=== PATIENT | female | born 1980 | race Caucasian/White ===

== ENCOUNTER → 2016-12-26 | Outpatient (CLI) | payer OTHER ==
[2016-12-26 15:36] LABS: COMPLETE YES; EOS % 0.6 %; HEMATOCRIT 39.6 % (37-47); IG% 0.1 %; LYMPH % 19.6 %; LYMPH ABS # 1.42 K/uL (1.2-3.4); MEAN CELL VOLUME 87.4 fL (80-100); MEAN CORPUSCULAR HEMOGLOBIN 30.5 pg (25-34); MEAN CORPUSCULAR HGB CONC 34.8 g/dl (32-36); MEAN PLATELET VOLUME 10.8 fL (7.4-10.4); NEUT % 70.7 %; PLATELET COUNT 163 K/uL (130-400); RED BLOOD COUNT 4.53 M/uL (4.2-5.4); WHITE BLOOD COUNT 7.25 K/uL (4.8-10.8)
[2016-12-26 16:09] LABS: ALT/SGPT 32 U/L (12-78); AST/SGOT 31 U/L (15-37); BLOOD UREA NITROGEN 18 mg/dl (7-18); BUN/CREATININE RATIO 27.1 (10-20); C-REACTIVE PROTEIN 0.36 mg/dl (0-0.29); CALCIUM 8.7 mg/dl (8.5-10.1); CARBON DIOXIDE 24 mmol/L (21-32); CHLORIDE 104 mmol/L (98-107); CREATININE 0.66 mg/dl (0.60-1.20); GLUCOSE 96 mg/dl (70-99); POTASSIUM 4.4 mmol/L (3.5-5.1); SODIUM 136 mmol/L (136-145)
[2016-12-26 16:11] LABS: ALB/GLOB RATIO 1.1 (0.9-2); ALKALINE PHOSPHATASE 126 U/L (45-117)
[2016-12-30 15:28] LABS: IGA SERUM 129 mg/dL (81-463); TIS TRANS IGA 1 U/mL (<4)
== END | disposition home or self-care (01) ==
LOC: C.LAB1850 14:55
PROVIDERS: ATTEND Registered Nurse
DX: K52.9 Noninfective gastroenteritis and colitis, unspecified (principal)

== ENCOUNTER → 2017-04-06 | Outpatient (CLI) | payer OTHER | END | disposition home or self-care (01) | LOC: C.LAB 17:38 | PROVIDERS: ATTEND Obstetrics & Gynecology | DX: O20.0 Threatened abortion (principal) ==

== ENCOUNTER → 2017-04-23 | Outpatient (CLI) | payer OTHER ==
[2017-04-23 18:25] LABS: URINE APPEARANCE CLEAR (CLEAR); URINE BILIRUBIN NEG (NEG); URINE COLOR YELLOW; URINE EPITHELIAL CELL AUTO >30 /lpf (0-5); URINE NITRITE NEG (NEG); URINE SPECIFIC GRAVITY 1.029 (1.000-1.030); UROBILINOGEN NEG (NEG)
[2017-04-23 18:26] LABS: MANUAL MICROSCOPIC REQUIRED? NO; REVIEW REQ? YES
== END | disposition home or self-care (01) ==
LOC: C.LABSPEC 17:12
PROVIDERS: ATTEND Obstetrics & Gynecology
DX: O09.511 Supervision of elderly primigravida, first trimester (principal); Z3A.00 Weeks of gestation of pregnancy not specified

== ENCOUNTER → 2017-04-29 | Outpatient (CLI) | payer OTHER ==
[2017-05-02 02:00] LABS: CHLAMYDIA TRACH RNA*** NOT DETECTED (NOT DETECTED); GC (NEIS GONORRHOEAE)RNA** NOT DETECTED (NOT DETECTED)
== END | disposition home or self-care (01) ==
LOC: C.LABSPEC 13:28
PROVIDERS: ATTEND Obstetrics & Gynecology
DX: O09.511 Supervision of elderly primigravida, first trimester (principal); Z3A.00 Weeks of gestation of pregnancy not specified

== ENCOUNTER → 2017-05-14 | Outpatient (CLI) | payer OTHER ==
[2017-05-14 13:47] LABS: URINE APPEARANCE CLEAR (CLEAR); URINE BILIRUBIN NEG (NEG); URINE COLOR YELLOW; URINE EPITHELIAL CELL AUTO >30 /lpf (0-5); URINE NITRITE NEG (NEG); URINE PH 6.5 (4.5-7.5); URINE SPECIFIC GRAVITY 1.021 (1.000-1.030); UROBILINOGEN NEG (NEG)
[2017-05-14 13:50] LABS: MANUAL MICROSCOPIC REQUIRED? NO; REVIEW REQ? NO
== END | disposition home or self-care (01) ==
LOC: C.LAB1850 10:42
PROVIDERS: ATTEND Obstetrics & Gynecology
DX: O23.40 Unspecified infection of urinary tract in pregnancy, unspecified trimester (principal)

== ENCOUNTER → 2017-06-24 | Outpatient (CLI) | payer BC ==
[2017-06-24 12:56] LABS: THYROID STIMULATING HORMONE 0.242 uIu/ml (0.300-4.500)
[2017-06-24 15:22] LABS: URINE APPEARANCE CLEAR (CLEAR); URINE BILIRUBIN NEG (NEG); URINE COLOR YELLOW; URINE NITRITE NEG (NEG); URINE SPECIFIC GRAVITY 1.027 (1.000-1.030); UROBILINOGEN NEG (NEG)
[2017-06-24 15:25] LABS: MANUAL MICROSCOPIC REQUIRED? NO; REVIEW REQ? NO
== END | disposition home or self-care (01) ==
LOC: C.LAB1850 11:21
PROVIDERS: ATTEND Internal Medicine Endocrinology, Diabetes & Metabolism
DX: R30.0 Dysuria (principal); E03.9 Hypothyroidism, unspecified; O20.0 Threatened abortion

== ENCOUNTER → 2017-06-26 | Outpatient (CLI) | payer BC ==
[2017-06-26 15:42] LABS: GTGD 50 Grams
[2017-07-16 10:25] LABS: AFP CONCENTRATION 54.6 NG/ML; AFPTS GESTATIONAL AGE 16.1 WEEKS; AFPTS INSULIN DEP DIABETIC? NO; AFPTS MATERNAL WT 157 LBS; ALPHA-FETOPROTEIN RACE CAUCASIAN=W; HISTORY OF NTD NO; REPEAT SAMPLE? NO
== END | disposition home or self-care (01) ==
LOC: C.LAB1850 13:31
PROVIDERS: ATTEND Obstetrics & Gynecology
DX: O09.512 Supervision of elderly primigravida, second trimester (principal)

== ENCOUNTER → 2017-07-03 | Outpatient (CLI) | payer BC | END | disposition home or self-care (01) | LOC: C.LAB1850 08:41 | PROVIDERS: ATTEND Obstetrics & Gynecology | DX: O28.1 Abnormal biochemical finding on antenatal screening of mother (principal); Z3A.00 Weeks of gestation of pregnancy not specified ==

== ENCOUNTER → 2017-07-17 | Outpatient (CLI) | payer BC ==
[2017-07-17 17:40] LABS: MANUAL MICROSCOPIC REQUIRED? NO; REVIEW REQ? NO; URINE APPEARANCE CLEAR (CLEAR); URINE BILIRUBIN NEG (NEG); URINE COLOR YELLOW; URINE NITRITE NEG (NEG); URINE PH 5.5 (4.5-7.5); URINE SPECIFIC GRAVITY 1.027 (1.000-1.030); UROBILINOGEN NEG (NEG)
== END | disposition home or self-care (01) ==
LOC: C.LAB1850 15:41
PROVIDERS: ATTEND Obstetrics & Gynecology
DX: R30.9 Painful micturition, unspecified (principal)

== ENCOUNTER → 2017-07-24 | Outpatient (CLI) | payer BC ==
[2017-07-24 13:53] LABS: THYROID STIMULATING HORMONE 0.314 uIu/ml (0.300-4.500)
== END | disposition home or self-care (01) ==
LOC: C.LAB1850 12:08
PROVIDERS: ATTEND Internal Medicine Endocrinology, Diabetes & Metabolism
DX: E03.9 Hypothyroidism, unspecified (principal); E06.3 Autoimmune thyroiditis; Z33.1 Pregnant state, incidental; Z3A.00 Weeks of gestation of pregnancy not specified

== ENCOUNTER → 2017-08-21 | Outpatient (CLI) | payer BC ==
[2017-08-21 15:12] LABS: THYROID STIMULATING HORMONE 0.231 uIu/ml (0.300-4.500)
== END | disposition home or self-care (01) ==
LOC: C.LAB1850 12:34
PROVIDERS: ATTEND Internal Medicine Endocrinology, Diabetes & Metabolism
DX: E03.9 Hypothyroidism, unspecified (principal)

== ENCOUNTER → 2017-09-18 | Outpatient (CLI) | payer BC ==
[2017-09-18 14:36] LABS: HEMATOCRIT 35.1 % (37-47)
[2017-09-18 17:41] LABS: THYROID STIMULATING HORMONE 0.279 uIu/ml (0.300-4.500)
[2017-09-18 18:49] LABS: URINE APPEARANCE CLEAR (CLEAR); URINE BILIRUBIN NEG (NEG); URINE COLOR YELLOW; URINE EPITHELIAL CELL AUTO >30 /lpf (0-5); URINE NITRITE NEG (NEG); URINE SPECIFIC GRAVITY 1.021 (1.000-1.030); UROBILINOGEN NEG (NEG)
[2017-09-18 18:51] LABS: MANUAL MICROSCOPIC REQUIRED? NO; REVIEW REQ? NO
== END | disposition home or self-care (01) ==
LOC: C.LAB1850 13:31
PROVIDERS: ATTEND Obstetrics & Gynecology
DX: O09.512 Supervision of elderly primigravida, second trimester (principal); O99.282 Endocrine, nutritional and metabolic diseases complicating pregnancy, second trimester; E03.9 Hypothyroidism, unspecified; Z3A.00 Weeks of gestation of pregnancy not specified

== ENCOUNTER → 2017-09-28 | Outpatient (CLI) | payer BC | END | disposition home or self-care (01) | LOC: C.LAB1850 08:35 | PROVIDERS: ATTEND Obstetrics & Gynecology | DX: O28.1 Abnormal biochemical finding on antenatal screening of mother (principal); Z3A.00 Weeks of gestation of pregnancy not specified; E53.8 Deficiency of other specified B group vitamins ==

== ENCOUNTER → 2017-10-02 | Outpatient (CLI) | payer BC ==
[2017-10-02 19:19] LABS: URINE APPEARANCE CLEAR (CLEAR); URINE BILIRUBIN NEG (NEG); URINE COLOR YELLOW; URINE EPITHELIAL CELL AUTO >30 /lpf (0-5); URINE NITRITE NEG (NEG); URINE SPECIFIC GRAVITY 1.015 (1.000-1.030); UROBILINOGEN NEG (NEG)
[2017-10-02 19:27] LABS: MANUAL MICROSCOPIC REQUIRED? NO; REVIEW REQ? NO
== END | disposition home or self-care (01) ==
LOC: C.LABSPEC 17:50
PROVIDERS: ATTEND Obstetrics & Gynecology
DX: O23.40 Unspecified infection of urinary tract in pregnancy, unspecified trimester (principal)

== ENCOUNTER → 2017-10-16 | Outpatient (CLI) | payer BC | END | disposition home or self-care (01) | LOC: C.LABSPEC 15:34 | PROVIDERS: ATTEND Obstetrics & Gynecology | DX: O23.40 Unspecified infection of urinary tract in pregnancy, unspecified trimester (principal) ==

== ENCOUNTER → 2017-10-27 | Outpatient (CLI) | payer BC ==
[~2017-10-27] MED LIST: CYAN10005 SL; CYAN50TA2; LEVO100T7 PO; PRENTAB26 PO
== END | disposition home or self-care (01) ==
LOC: C.LAB1850 09:07
PROVIDERS: ATTEND Internal Medicine Endocrinology, Diabetes & Metabolism
DX: E03.9 Hypothyroidism, unspecified (principal)

== ENCOUNTER → 2017-11-12 | Outpatient (CLI) | payer OTHER | END | disposition home or self-care (01) | LOC: C.LABSPEC 17:42 | PROVIDERS: ATTEND Obstetrics & Gynecology | DX: O09.513 Supervision of elderly primigravida, third trimester (principal) ==

== ENCOUNTER 2017-11-29 03:46 | Inpatient (IN) | payer OTHER ==
[~2017-11-29] VITALS: Ht 172.7 cm; Wt 85.7 kg
[2017-11-29] MEDS ORDERED: LEVO100T7 PO (04:36)
[2017-11-29] MEDS ORDERED: PRENTAB26 PO (04:36)
[2017-11-29] MEDS ORDERED: CYAN50TA2 (04:36)
[2017-11-29 04:37] VITALS: Ht 172.7 cm; Wt 85.7 kg
[2017-11-29] MEDS ORDERED: LACTATED RINGER'S 1000ML 1,000 ML IV PRN (05:07)
[2017-11-29 05:39] LABS: HEMATOCRIT 35.6 % (37-47); HEMOGLOBIN 12.4 g/dL (12.0-16.0); MEAN CORPUSCULAR HGB CONC 34.8 g/dl (32-36); MEAN PLATELET VOLUME 11.1 fL (7.4-10.4); PLATELET COUNT 150 K/uL (130-400); RED CELL DISTRIBUTION WIDTH CV 14.3 % (11.5-14.5); RED CELL DISTRIBUTION WIDTH SD 47.6 fL (36.4-46.3); WHITE BLOOD COUNT 8.26 K/uL (4.8-10.8)
[2017-11-29] MEDS: LACTATED RINGER'S 1000ML 1,000 ML IV SCH ×3 (09:20→17:15)
[2017-11-29] MEDS: LEVOTHYROXINE 100 MCG TAB PO SCH (10:36)
[2017-11-29] MEDS ORDERED: FENTANYL CITRATE INJ 50 MCG/1 ML 2 ML VIAL ONE (11:16)
[2017-11-29] MEDS ORDERED: BUPIVACAINE 0.25% 30 ML VIAL ONE (11:16)
[2017-11-29] MEDS ORDERED: EpHEDrine SULFATE INJ 50 MG/ML AMP ONE (11:16)
[2017-11-29] MEDS ORDERED: FENTANYL 2MCG/ML ROPIV 1.25MG/ML 100ML BAG EPI ONE (11:17)
[2017-11-29] MEDS ORDERED: LACTATED RINGER'S 1000ML 500 ML IV PRN ×2 (11:32→12:14)
[2017-11-29] MEDS ORDERED: OXYTOCIN 30 UNITS/500ML NSS IV PRN ×2 (11:45→21:45)
[2017-11-29] MEDS ORDERED: NALOXONE HCL INJ 1 MG in SODIUM CHLORIDE 0.9% 1000ML 1,000 ML IV PRN (12:14)
[2017-11-29] MEDS ORDERED: NALBUPHINE HCL INJ 10 MG/ML AMP IV PRN (12:15)
[2017-11-29] MEDS ORDERED: NALOXONE HCL INJ 0.4 MG/1 ML VIAL/CARP IV PRN (12:15)
[2017-11-29] MEDS ORDERED: EpHEDrine SULFATE INJ 50 MG/ML AMP IV PRN (12:15)
[2017-11-29] MEDS ORDERED: ONDANSETRON INJ 2 MG/ML 2 ML VIAL IV PRN (12:15)
[2017-11-29] MEDS ORDERED: DiphenhydrAMINE HCL 50 MG/ML VIAL IV PRN (12:15)
[2017-11-29] MEDS: FENTANYL 2MCG/ML ROPIV 1.25MG/ML 100ML BAG EPI PRN ×2 (18:11→19:09)
[2017-11-29] MEDS ORDERED: ACETAMINOPHEN 325 MG TAB PO PRN (21:45)
[2017-11-29] MEDS ORDERED: SUPERCREAM 0.870 % 15GM JAR EXT PRN (21:45)
[2017-11-29] MEDS ORDERED: LANOLIN OINT EXT PRN (21:45)
[2017-11-29] MEDS ORDERED: OXYCODONE/ACETAMINOPHEN 5-325 TAB PO PRN (21:45)
[2017-11-29] MEDS ORDERED: BENZOCAINE 20% AER SPR 82.5 GM CAN EXT PRN (21:45)
[2017-11-29] MEDS ORDERED: HYDROCORTISONE ACETATE 25 MG SUPP PR PRN (21:45)
[2017-11-29] MEDS ORDERED: DIPHTHERIA/TETANUS/PERTUSSIS 0.5 ML SYR/VIAL IM. ONE (21:45)
--- NOTE | 2017-11-29 21:45 | Anesthesia Procedure Note ---
Anesthesia Epidural Removal Nt Date & Time Nov 29, 2017 at 21:45 Vital Signs Pain Intensity: 0.0 Notes Mental Status: alert / awake / arousable, participated in evaluation Nausea / Vomiting: adequately controlled Pain: adequately controlled Airway Patency, RR, SpO2: stable & adequate BP & HR: stable & adequate Hydration State: stable & adequate Neuraxial Anesthesia: was administered Anesthetic Complications: no major complications apparent, pt satisfied with anesthetic care Epidural: removed without complications, with tip intact
--- NOTE | 2017-11-29 22:38 | DELIVERY SUMMARY ---
DATE OF OPERATION: 11/29/2017 PREOPERATIVE DIAGNOSES: 1. Intrauterine at 40+ weeks. 2. Spontaneous rupture of membranes prior to the onset of labor. POSTOPERATIVE DIAGNOSES: Same. PROCEDURES: 1. Epidural anesthesia. 2. Pitocin augmentation. 3. Normal spontaneous vaginal delivery. 4. Second degree perineal laceration with repair. SURGEON: Dr. Harry. ANESTHESIA: Epidural. ESTIMATED BLOOD LOSS: 400 mL. DESCRIPTION OF PROCEDURE: The patient presented to labor and delivery with grossly rupture of membranes. She was 150% minus 2 station on admission. She was monitored and progressed to 380 and minus 2 but then stalled at that point in time. She eventually got an epidural anesthesia and then Pitocin augmentation. GBS was negative. She progressed to complete complete and +1 station. She labored down for an hour and then pushed for a little less than 2 hours to deliver a viable female infant in FLAVIO presentation with the nuchal hand and arm. There was a body cord through which the baby was delivered. The nose and mouth were bulb suctioned on the perineum and the rest of the was then delivered without difficulty. The infant was placed on the maternal abdomen for drying and attention. The cord blood was obtained. The placenta was delivered spontaneously intact with a 3-vessel cord. Cervix, sulci and rectum examined and found to be intact. Second degree perineal laceration was repaired with 3-0 Vicryl in the normal standard fashion. Estimated blood loss 400 mL. Hemostasis with dilute Pitocin and fundal massage. Apgars were 8 and 9. Weight pending. Mother and baby doing well at the end of the delivery. I attest to the content of the Intraoperative Record and any orders documented therein. Any exception s are noted below.
[2017-11-30] VITALS (7 sets, daily range): BP systolic 108–133; BP diastolic 69–85; PULSE 68–84; TEMP 36.5–36.8; O2SAT 95–100
--- NOTE | 2017-11-30 05:32 | Progress Note ---
Subjective Nov 30, 2017. Subjective conversation w/ patient, physical exam, lab review Ambulation: ambulating normally Voiding: no voiding problems Passing Gas: Yes Diet Tolerance: Regular Diet Lochia: Small Feeding Type: Breast Feeding Pain: BOTTOM AND HEMORRHOIDS SORE Objective Vital Signs Date Time Temp Pulse Resp B/P (MAP) Pulse Ox O2 Delivery O2 Flow Rate FiO2 11/30/17 03:45 36.8 69 18 108/69 (82) Room Air 11/30/17 00:01 36.5 68 18 119/72 (88) Room Air Physical Exam General Appearance: WELL-APPEARING, WD/WN, NO APPARENT DISTRESS Respiratory/Chest: lungs clear Cardiovascular: regular rate, rhythm Abdomen: non tender, soft Fundus: Firm, Non-Tender, Relation to Umbilicus (AT U) Extremities: non-tender, normal inspection Laboratory Results Last 24 Hours Test 11/29/17 06:02 11/29/17 08:29 11/29/17 10:33 11/29/17 12:43 Bedside Glucose 70 mg/dl 97 mg/dl 99 mg/dl 100 mg/dl Test 11/29/17 14:39 11/29/17 16:45 11/29/17 19:08 11/29/17 21:07 Bedside Glucose 84 mg/dl 95 mg/dl 91 mg/dl 117 mg/dl Test 11/30/17 04:44 Assessment and Plan Post- Day#: 1 Continue Routine Care: Doing well. Routine care. Continue B12 and synthroid. Supercream for hemorrhoids.
[2017-11-30] MEDS: LEVOTHYROXINE 100 MCG TAB PO SCH (07:35)
[2017-11-30 07:54] LABS: HEMATOCRIT 32.6 % (37-47); HEMOGLOBIN 11.1 g/dL (12.0-16.0)
[2017-11-30] MEDS: PRENATAL VITAMIN TAB PO SCH (08:09)
[2017-11-30] MEDS: DOCUSATE SODIUM 100 MG CAP PO SCH ×2 (08:09→20:04)
--- NOTE | 2017-11-30 11:00 | Discharge Instructions ---
Discharge Instructions Date of Service Nov 30, 2017. Admission Reason for Admission: LABOR Discharge Discharge Diagnosis / Problem: Vaginal Delivery Discharge Goals Goal(s): Routine recovery after delivery Medications Continue Dispensed Medications: supercream, dermaplast, tucks, lansinoh Activity Recommendations Activity Limitations: per Instructions/Follow-up section . Instructions / Follow-Up Instructions / Follow-Up ACTIVITY RECOMMENDATIONS: * Gradual return to full activity over the next 2-3 weeks. * No lifting - nothing heavier than baby over the next 2-3 weeks. * Do not engage in vigorous exercise, sexual activity or sports until cleared by your physician. * Do not drive or operate any motorized equipment until cleared by your physician. * You may shower/bathe daily. MEDICATIONS: For discomfort or pain, you may use Acetaminophen (Tylenol), Ibuprofen (Advil), or Naproxen (Aleve) following the package directions. For constipation you may use Colace following the package directions. BREAST CARE: If you are not breast feeding: * Wear a supportive bra 24 hours a day for one to two weeks. * Avoid stimulating your breasts and nipples as much as possible during the first few weeks after delivery. * When taking a shower, have the warm water hit your back, not breasts. * When your breasts feel full, apply ice packs. Usually three to four times a day helps ease the discomfort. * Take a mild pain medication (Tylenol / Motrin) when you are uncomfortable. If breast feeding: * Use breast milk to lubricate nipples. Lansinoh cream may be used for sore nipples. You do not need to remove cream prior to breast feeding. If using a different brand of cream, check the label for directions regarding removal of cream prior to nursing. * Wear a supportive bra. * If having problems with breasts or breast feeding, call a sales development consultant or your health care provider. EPISIOTOMY CARE: After delivery, if you have an episiotomy (stitches), the following steps will ease discomfort and aid healing. * For the first 24 hours after delivery, place ice packs next to your episiotomy to help reduce swelling. * After the first 24 hour-period, sitz baths, either portable or in the tub, are suggested. A shower with a shower arm sprayed over the episiotomy may be comforting. * Roxann care should be done after each voiding and bowel movement. Squirt warm water from a plastic bottle over the perineum (region of the body between the anus and urinary opening) and pat dry. * Use Dermoplast to ease discomfort. Shake container. [place] directly over the episiotomy. Place a Tucks on a clean sanitary pad next to your episiotomy. SPECIAL CARE INSTRUCTIONS: When you are discharged from the hospital, it is important for you to follow the instructions listed below: * During the first week at home, you should be able to care for yourself and your baby. In addition, the usual light household activities are encouraged. * Limit your activities to the way you feel. Do not try to clean the house or move furniture. Be sensible. * If you actively engage in sports and have done so up until the time of your delivery, you may resume these activities as soon as you feel able. This may take up to one month or even longer. Use good judgment. * Continue to take your vitamins for at least six weeks after the of your baby. * Your diet need not be limited unless you were on a special diet before your delivery. Breast-feeding mothers need around 2500 calories per day and at least 64-80 ounces of fluid per day (8 to 10 glasses). * You should eat foods from the four major food groups. Crash diets or fad diets are to be avoided. Eating lean meats, fresh fruits and vegetables, low-fat dairy products, high fiber foods and a regular exercise program, will help you get back to your pre- weight without putting your health at risk. * Constipation is sometimes a problem after delivery. Take a mild laxative as needed. If breast feeding, Milk of Magnesia is acceptable to use. You may use a suppository or Fleets enema if no episiotomy. * A daily shower or tub bath is suggested. Be sure to thoroughly and gently dry the perineum. * A bloody vaginal discharge will usually continue until around four weeks post . A small amount of bleeding may continue for as long as six weeks. Vaginal discharge changes from the bright red bleeding after delivery to pink then brownish and finally yellowish-pink before becoming white and disappearing. * Bleeding may increase with activity. Your first period may come in 4-8 weeks. If you are breast feeding, your period may be delayed even longer. * [place] (sex) can begin whenever both you and your partner feel comfortable and do not have any form of genital infection. It is recommended that you wait at least six weeks for internal and external healing to occur. If you have questions, please talk to your health care practitioner. A condom should be used to prevent infection and . * Foreplay, gentle intercourse and lubrication is very important the first several times to prevent pain. A water-based lubricant such as K-Y jelly or Astroglide may be used. * If you have RH negative blood and your baby is RH positive, you will receive RHOGAM by injection prior to discharge. The nurse will give you a card to keep with you that has the date and place that you received RHOGAM after delivery. * During your care, you had a Rubella screen done to check for the presence of rubella antibodies in your blood. If your test was negative, you will receive a Rubella vaccine prior to discharge. This vaccine may cause a fever, soreness at the injection site and flu-like symptoms. If these symptoms persist, notify your health care practitioner. is not advised for one month after a Rubella vaccine. * Verbalizes understanding of car seat law as reviewed with patient nursing. * Car Seat hand-out given and reviewed with patient by nursing. * Shaken baby information reviewed with patient by nursing. Call you doctor if: * Heavy bleeding (saturating several pads an hour) or passing clots the size of your fist. * A fever >101 degrees F (38.3 degrees C) on two occasions four hours apart and /or chills. * Unusual pain in the pelvic or vaginal areas. * "Baby Blues" lasting longer than two weeks. If you have any questions or concerns, call your health care practitioner at . FOLLOW UP VISIT: * Please call the office at to schedule a 6 week examination. It is important you keep this appointment. It is important for you to make arrangements for either yearly or twice yearly check-ups thereafter. Current Hospital Diet Patient's current hospital diet: Regular OB Diet Discharge Diet Recommended Diet: Regular Diet Pending Studies Studies pending at discharge: no Medical Emergencies . Who to Call and When: Medical Emergencies: If at any time you feel your situation is an emergency, please call [phone] immediately. . Non-Emergent Contact Non-Emergency issues call your: Primary Care Provider . . "Provider Documentation" section prepared by Cristina Madison. . VTE Core Measure Inpt VTE Proph given/why not?: Treatment not indicated
[2017-11-30] MEDS: IBUPROFEN 600 MG TAB PO PRN ×2 (13:06→18:51)
[2017-11-30] MEDS ORDERED: CYAN10005 SL (14:11)
--- NOTE | 2017-11-30 18:55 | Progress Note ---
Progress Note Date of Service Nov 30, 2017. Progress Note ctsp due to right hip pain. she has h/o sciatica before . had and 2nd degree repair about 24hr ago. she feels that her hip pain is worse than with the . she is doing stretches and applying heat but not feeling better. she is abiola po, voiding. she has not had bm but feels anal spasms i observe her in bed and she is having pain, moves slowly to lay supine. vag exam done and no evidence of side wall hematoma that could be aggravating situation. assisted patient in trying some maneuvers to reset pubic bone and these are techniques she has been told before due to her chronic condition. they seemingly have not helped. rec motrin and bedside walker. PT consult. pt verbalized understanding.
[2017-11-30] MEDS: SUB SL SCH (20:03)
[2017-11-30] MEDS: METHYLCOBALAMIN 1000 MCG SL SCH (20:03)
[2017-12-01] MEDS: IBUPROFEN 600 MG TAB PO PRN ×2 (00:17→09:41)
[2017-12-01] MEDS: LEVOTHYROXINE 100 MCG TAB PO SCH (07:22)
--- NOTE | 2017-12-01 07:24 | Progress Note ---
Subjective Dec 01, 2017. Subjective conversation w/ patient, physical exam Ambulation: ambulation with walker Voiding: no voiding problems Diet Tolerance: Regular Diet Lochia: Small Feeding Type: Breast Feeding Pain: improving pain in back and pubic bone and vagina Comment: taking motrin regularly. sitting upright better. slow ambulation to BR. complaining of tightness behind knee on right, R>L Objective Vital Signs Date Time Temp Pulse Resp B/P (MAP) Pulse Ox O2 Delivery O2 Flow Rate FiO2 11/30/17 23:30 36.8 77 18 109/70 (83) Room Air 11/30/17 23:30 Room Air 11/30/17 18:50 36.6 84 20 120/84 (96) 96 Room Air 11/30/17 16:15 95 Room Air 11/30/17 16:15 36.5 84 22 110/70 (83) 95 Room Air 11/30/17 11:30 36.7 84 22 123/76 (92) 97 Room Air 11/30/17 07:40 100 Room Air 11/30/17 07:40 36.5 70 18 133/85 (101) 100 Room Air Physical Exam General Appearance: WELL-APPEARING, WD/WN, NO APPARENT DISTRESS, other (rash on chest, reticular, small area about 3cm, no pruritic, ) Respiratory/Chest: lungs clear Cardiovascular: regular rate, rhythm Abdomen: non tender, soft Fundus: Firm, Relation to Umbilicus (2 down) Extremities: normal inspection (complaints of tenderness behind right knee. R= L in appearance), + swelling Laboratory Results Last 24 Hours Test 11/30/17 07:41 Hemoglobin 11.1 g/dL Hematocrit 32.6 % Assessment and Plan Post- Day#: 2 Continue Routine Care: improved hip and pubic bone pain, plan PT consult and see if needs at home, pt with long standing pelvic bone pain and will need to improve with time. she has exercises she is well aware of to improve with time and feels like she wants to go home and allow more time to heal. given right leg pain, will check US to evaluate for DVT once this is done and PT consult done, will plan d/c home. instructions reviewed. f/u 6 wk pp check. . reviewed rash on chest, can apply otc hydrocortisone and monitor.
[2017-12-01] MEDS: SUB SL SCH (08:26)
[2017-12-01] MEDS: METHYLCOBALAMIN 1000 MCG SL SCH (08:26)
[2017-12-01] MEDS: DOCUSATE SODIUM 100 MG CAP PO SCH (08:26)
[2017-12-01] MEDS: PRENATAL VITAMIN TAB PO SCH (08:26)
[2017-12-01 08:41] VITALS: BP 107/67; PULSE 64; TEMP 36.9; O2SAT 98
--- NOTE | 2017-12-01 09:30 | DIAGNOSTIC IMAGING REPORT ---
RIGHT LOWER EXTREMITY VENOUS DOPPLER CLINICAL HISTORY: Right leg pain and swelling. COMPARISON STUDY: No previous studies for comparison. TECHNIQUE: Sonography of the deep venous system of the right lower extremity was performed. Compression and augmentation were evaluated. FINDINGS: The right common femoral, superficial femoral and popliteal veins were compressible. Augmentation was normal. Flow was shown within the deep calf vessels. IMPRESSION: No evidence of deep venous thrombus within the right lower extremity. Electronically signed by: Ventura Pinto M.D. 12/01/2017 9:28 AM Dictated Date/Time: 12/01/2017 9:28 AM
[2017-12-01 10:05] VITALS: O2SAT 98
== END 2017-12-01 12:40 | disposition home or self-care (01) | DRG 775 ==
LOC: C.OPB 03:46 → C.LD 03:46 → C.OPB 04:53 → C.OBG 11-30 00:05
PROVIDERS: ADMIT Obstetrics & Gynecology; ATTEND Obstetrics & Gynecology
PROC: 0KQM0ZZ Repair Perineum Muscle, Open Approach (ICD-10-PCS; principal; 2017-11-29)
PROC: 10E0XZZ Delivery of Products of Conception, External Approach (ICD-10-PCS; principal; 2017-11-29)
DX: O24.424 Gestational diabetes mellitus in childbirth, insulin controlled (principal); O42.92 Full-term premature rupture of membranes, unspecified as to length of time between rupture and onset of labor; O76 Abnormality in fetal heart rate and rhythm complicating labor and delivery; O69.81X0 Labor and delivery complicated by cord around neck, without compression, not applicable or unspecified; O70.1 Second degree perineal laceration during delivery; Z37.0 Single live birth; Z3A.40 40 weeks gestation of pregnancy; Z79.4 Long term (current) use of insulin; Z79.899 Other long term (current) drug therapy; M79.604 Pain in right leg; R21 Rash and other nonspecific skin eruption; O26.893 Other specified pregnancy related conditions, third trimester

== ENCOUNTER → 2017-12-16 | Outpatient (CLI) | payer OTHER ==
[~2017-12-16] MED LIST changes: -CYAN50TA2
== END | disposition home or self-care (01) ==
LOC: C.LAB1850 11:13
PROVIDERS: ATTEND Obstetrics & Gynecology
DX: R30.9 Painful micturition, unspecified (principal)

== ENCOUNTER → 2018-02-08 | Outpatient (CLI) | payer OTHER | END | disposition home or self-care (01) | LOC: C.LAB1850 08:48 | PROVIDERS: ATTEND Internal Medicine Endocrinology, Diabetes & Metabolism | DX: E03.9 Hypothyroidism, unspecified (principal) ==

== ENCOUNTER → 2018-06-22 | Outpatient (CLI) | payer OTHER | END | disposition home or self-care (01) | LOC: C.LABBC 09:45 | PROVIDERS: ATTEND Internal Medicine Endocrinology, Diabetes & Metabolism | DX: E03.9 Hypothyroidism, unspecified (principal) ==

== ENCOUNTER → 2018-06-24 | Outpatient (CLI) | payer OTHER | END | disposition home or self-care (01) | LOC: C.LAB1850 10:55 | PROVIDERS: ATTEND Obstetrics & Gynecology | DX: O24.414 Gestational diabetes mellitus in pregnancy, insulin controlled (principal) ==

== ENCOUNTER 2019-05-22 06:00 | Inpatient (IN) ==
[2019-05-22] MEDS ORDERED: OXYTOCIN 30 UNITS/500 ML BAG IV PRN ×2 (06:58→15:52)
[2019-05-22] MEDS ORDERED: INSULIN REGULAR 250 UNITS in SODIUM CHLORIDE 0.9% 247.5 ML IV PRN (06:58)
[2019-05-22] MEDS ORDERED: PENICILLIN G POTASSIUM 3 MU in DEXTROSE 5% 100 ML IV PRN (06:58)
[2019-05-22] MEDS ORDERED: DEXTROSE 50% 50 ML SYRINGE IV PRN (06:58)
[2019-05-22] MEDS ORDERED: PENICILLIN G POTASSIUM 6 MU in DEXTROSE 5% 250 ML IV STA (06:58)
[2019-05-22] MEDS ORDERED: SODIUM CHLORIDE 0.9% 1000ML 1,000 ML IV PRN (06:58)
[2019-05-22] MEDS ORDERED: DEXTROSE 5% 1,000 ML IV SCH (07:00)
--- NOTE | 2019-05-22 07:10 | Labor Progress Brief Note ---
Date of Service May 22, 2019 Subjective C/O LOF clear. GBS pos. No contractions. +FM. no VB. Assessment & Plan (1) Gestational diabetes mellitus (GDM) affecting second : Insulin protocol. Starting BG 103. Present on Admission?: Yes (2) PROM (premature rupture of membranes): Options reviewed, pt and agreeable to beginning with oral cytotec. PROM onset of labor timing: onset of labor more than 24 hours following rupture PROM gestational age: full term Qualified Code(s): O42.12 - Full-term premature rupture of membranes, onset of labor more than 24 hours following rupture Present on Admission?: Yes (3) GBS carrier: PCN. Present on Admission?: Yes (4) Rh negative status during : is Rh neg and patient has previously declined Rhogam. Trimester: third trimester Qualified Code(s): O26.893 - Other specified related conditions, third trimester; Z67.91 - Unspecified blood type, Rh negative Present on Admission?: Yes Physical Exam Physical Exam: cvx //hi/soft/post FHT Cat 1 [place] rare contractions Results & Data Vital Signs (Past 12 Hours) Vital Signs Temp Pulse Resp BP 05/22/19 06:58 83 128/72 05/22/19 06:32 91 H 131/78 05/22/19 06:22 88 131/76 05/22/19 06:13 36.5 C 18 05/22/19 06:11 93 H 141/76 H
[2019-05-22 07:21] LABS: Hematocrit (blood only) 36.6 % (37-47); Hemoglobin 12.5 g/dL (12.0-16.0); Mean Corpuscular Volume 90.6 fL (80-100); Mean Platelet Volume 10.6 fL (7.4-10.4); Platelet Count 149 K/uL (130-400); RDW Coefficient of Variation 14.5 % (11.5-14.5); RDW Standard Deviation 47.5 fL (36.4-46.3); Red Blood Count 4.04 M/uL (4.2-5.4); White Blood Count 10.17 K/uL (4.8-10.8)
[2019-05-22 07:28] LABS: Mean Corpuscular Hgb Conc 34.2 g/dL (32-36)
[2019-05-22] MEDS ORDERED: miSOPROStol 50 MCG TAB PO ONE (08:00)
[2019-05-22] MEDS ORDERED: miSOPROStol 50 MCG TAB PO SCH (09:00)
[2019-05-22] MEDS ORDERED: LACTATED RINGER'S 1,000 ML IV SCH ×2 (10:15→15:52)
[2019-05-22] MEDS ORDERED: BUPIVACAINE 0.25% 30 ML VIAL ONE (12:00)
[2019-05-22] MEDS ORDERED: fentaNYL citrate 100 MCG/2 ML VIAL ONE (12:01)
[2019-05-22] MEDS ORDERED: ePHEDrine sulfate 50 MG/ML AMP ONE (12:01)
[2019-05-22] MEDS ORDERED: fentaNYL 2MCG/ML ROPIV 1.25MG/ML 100 ML BAG EPI ONE (12:01)
--- NOTE | 2019-05-22 12:44 | Anesthesiology Consultation ---
Date of Service May 22, 2019 Assessment & Plan Chart Review Chart Review: Acceptable Risk for Labor Epidural Consults Requested none History Height/Weight Height: 5 ft 8 in Weight: 89.811 kg Allergies Allergy/AdvReac Type Severity Reaction Status Date / Time No Known Allergies Allergy Verified 04/25/19 15:34 Medications Home Medications Medication Instructions Recorded Confirmed Last Taken PNV cmb#95-ferrous fumarate-FA 1 tab PO DAILY 01/17/19 05/22/19 05/21/19 23:30 [] cyanocobalamin (vitamin B-12) 1,000 mcg PO DAILY 01/17/19 05/22/19 05/22/19 06:00 [Vitamin B-12] levothyroxine [Synthroid] 100 mcg PO DAILYBB 01/17/19 05/22/19 05/22/19 06:00 insulin NPH isoph U-100 human 15 unit SUBCUT HS 05/22/19 05/22/19 05/21/19 23:00 [Novolin N NPH U-100 Insulin] insulin regular human [Novolin R 15 unit SUBCUT AC 05/22/19 05/22/19 05/21/19 17:00 Regular U-100 Insuln] levothyroxine [Synthroid] 100 mcg PO DAILY 05/22/19 05/22/19 05/22/19 06:00 Active Medications Generic Name Dose Route Start Last Admin Trade Name Freq PRN Reason Stop Dose Admin Dextrose 1,000 mls @ 100 mls/hr 05/22/19 07:00 05/22/19 11:46 D5w IV 06/21/19 06:59 100 mls/hr .Q10H YOVANY Infusion Protocol Penicillin G Potassium 3 mu/ 106 mls @ 100 mls/hr 05/22/19 06:58 05/22/19 11:28 Dextrose IV 06/01/19 06:57 100 mls/hr Q4H PRN Administration Give until delivery Insulin Human Regular 250 250 mls @ 0.5 mls/hr 05/22/19 06:58 05/22/19 11:46 units/ Sodium Chloride IV 06/21/19 06:57 0.5 units/hr Q24H PRN 0.5 mls/hr BSG 80mg/dL or above Infusion Protocol 0.5 UNITS/HR Lactated Ringer's 1,000 mls @ 125 mls/hr 05/22/19 10:15 05/22/19 11:30 Lr IV 06/21/19 10:14 0 mls/hr .Q8H YOVANY Infusion Past Medical History Medical History Delayed gastric emptying Gastroparesis Hypothyroidism No significant past surgical history and not yet delivered Social History Smoking Status: Never smoker Hx Alcohol Use: No Hx Substance Use: No substance use type: does not use Physical Exam Vital Signs Last Vital Signs Temp 36.4 C L 05/22/19 10:53 Pulse 79 05/22/19 12:41 Resp 18 05/22/19 10:53 BP 112/70 05/22/19 12:41 Pulse Ox 98 05/22/19 12:41 Testing Laboratory Results 05/22/19 07:11 05/22/19 05/22/19 05/22/19 11:43 10:46 09:45 POC Glucose 96 94 94 05/22/19 05/22/19 05/22/19 08:48 07:45 06:28 POC Glucose 110 H 106 H 103 H
[2019-05-22] MEDS ORDERED: NALBUPHINE HCL INJ 10 MG/ML AMP IV PRN (12:47)
[2019-05-22] MEDS ORDERED: NALOXONE HCL 1 MG in SODIUM CHLORIDE 0.9% 1000ML 1,000 ML IV PRN (12:47)
[2019-05-22] MEDS ORDERED: NALOXONE HCL 0.4 MG/1 ML VIAL/CARP IV PRN (12:47)
[2019-05-22] MEDS ORDERED: ePHEDrine sulfate 50 MG/ML AMP IV PRN (12:47)
[2019-05-22] MEDS ORDERED: fentaNYL 2MCG/ML ROPIV 1.25MG/ML 100 ML BAG EPI PRN (12:47)
[2019-05-22] MEDS ORDERED: DiphenhydrAMINE HCL 50 MG/ML VIAL IV PRN (12:47)
--- NOTE | 2019-05-22 13:10 | Labor Progress Brief Note ---
Date of Service May 22, 2019 Patient evaluated a bit ago; delayed note. Subjective Reason For Note: Routine Evaluation Comfortable with Epidural, just completed placement at the time of my visit. Assessment & Plan (1) PROM (premature rupture of membranes): Has gone into labor after the one dose of cytotec. Expectant management for now. PROM onset of labor timing: onset of labor more than 24 hours following rupture PROM gestational age: full term Qualified Code(s): O42.12 - Full-term premature rupture of membranes, onset of labor more than 24 hours following rupture Present on Admission?: Yes (2) Gestational diabetes mellitus (GDM) affecting second : Continue insulin protocol. Present on Admission?: Yes (3) GBS carrier: Continue pitocin. Present on Admission?: Yes Physical Exam Genitourinary: Manual OB Exam: + cervical dilation 8 cm, + cervical effacement 100%, + station + 1 and + amniotic fluid clear OB Exam Monitor Tracing: + category I Results & Data Vital Signs (Past 12 Hours) Vital Signs Temp Pulse Resp BP Pulse Ox 05/22/19 13:06 77 98 05/22/19 13:05 75 110/73 05/22/19 13:03 80 108/74 05/22/19 13:01 82 109/77 98 05/22/19 12:59 86 111/79 05/22/19 12:57 77 110/78 05/22/19 12:56 74 108/74 97 05/22/19 12:53 83 112/73 05/22/19 12:51 79 109/68 99 05/22/19 12:49 81 112/67 05/22/19 12:47 80 114/71 05/22/19 12:46 81 105/61 99 05/22/19 12:43 82 111/68 05/22/19 12:41 79 112/70 98 05/22/19 12:39 71 107/68 05/22/19 12:37 81 110/71 05/22/19 12:36 77 100 05/22/19 12:35 76 115/70 05/22/19 12:33 70 115/70 05/22/19 12:31 67 116/70 99 05/22/19 12:29 121/74 05/22/19 12:27 73 117/72 05/22/19 12:26 74 100 05/22/19 12:21 79 100 05/22/19 12:16 92 H 100 05/22/19 12:11 73 100 05/22/19 11:33 77 121/77 05/22/19 10:53 36.4 C L 80 18 121/74 05/22/19 08:41 36.5 C 05/22/19 06:58 36.7 C 83 18 128/72 05/22/19 06:32 91 H 131/78 05/22/19 06:22 88 131/76 05/22/19 06:13 36.5 C 18 05/22/19 06:11 93 H 141/76 H
--- NOTE | 2019-05-22 15:48 | Delivery Summary ---
Vaginal Delivery Summary Date of Service May 22, 2019 Vaginal Delivery Summary PREOPERATIVE DIAGNOSES: 1. Juares intrauterine at 37w5d gestation. 2. PROM. 3. Group B Streptococcus pos. POSTOPERATIVE DIAGNOSES: 1. Juares intrauterine at 37w5d gestation. 2. PROM. 3. Group B Streptococcus pos. PROCEDURE: Spontaneous vaginal delivery and repair of 2nd degree laceration. SURGEON: Iwona Giles MD. IRRADIATED FUEL HANDLER: None. ESTIMATED BLOOD LOSS: 350 mL. COMPLICATIONS: None. PLACENTA: Spontaneous and intact with a 3-vessel cord. DISPOSITION: Stable to labor and delivery. DESCRIPTION: The patient is a 38-year-old G2, P1, who presented with PROM early hours of the morning, for clear fluid. She pushed well and brought the head to in DOP position. The 's head was allowed to deliver with contraction force and no further active pushing, with the perineum protected during this time. The shoulders delivered easily with a maternal pushing effort. The R shoulder was anterior. The shoulders and body delivered without any difficulty, and the was placed on the maternal abdomen. It was vigorous and moving all extremities, and making respiratory efforts. The cord was doubly clamped by the MD and then cut by the FOB. The placenta delivered spontaneously and was noted to be intact and with a 3VC. The cervix, vagina and perineum were examined and were found to have a second degree laceration that was repaired in the usual manner with vicryl suture. The fundus was firm and lochia minimal immediately after delivery.
[2019-05-22] MEDS ORDERED: SUPERCREAM 0.870% 15 GM JAR EXT PRN (15:52)
[2019-05-22] MEDS ORDERED: OXYCODONE/ACETAMINOPHEN 5mg/325mg TAB PO PRN (15:52)
[2019-05-22] MEDS ORDERED: HYDROCORTISONE ACETATE 25 MG SUPP PR PRN (15:52)
[2019-05-22] MEDS ORDERED: BENZOCAINE 20% AER SPR 82.5 GM CAN EXT PRN (15:52)
[2019-05-22] MEDS ORDERED: ACETAMINOPHEN 325 MG TAB PO PRN (15:52)
[2019-05-22] MEDS ORDERED: IBUPROFEN 600 MG TAB PO PRN (15:52)
--- NOTE | 2019-05-22 16:15 | Anesthesia Procedure Note ---
Date of Service May 22, 2019 Anesthesia Post Epidural Note Vital Signs Vital Signs: Temp Pulse Resp BP Pulse Ox 36.7 C 81 18 130/66 98 05/22/19 15:40 05/22/19 16:11 05/22/19 15:55 05/22/19 16:11 05/22/19 15:21 Notes Mental Status: alert / awake / arousable Nausea / Vomiting: adequately controlled Pain: adequately controlled Airway Patency, RR, SpO2: stable & adequate BP & HR: stable & adequate Hydration State: stable & adequate Neuraxial Anesthesia: was administered and sensory block is resolving Anesthetic Complications: no major complications apparent and Pt Satisfied with anesthetic care Epidural: Removed without complications and With tip intact
[2019-05-22] MEDS: DOCUSATE SODIUM 100 MG CAP PO SCH (20:07)
[2019-05-23] MEDS: LEVOTHYROXINE SODIUM 100 MCG TABLET PO SCH (04:30)
--- NOTE | 2019-05-23 05:05 | Obstetrical Progress Note ---
Date of Service <Casey Santos MD - Last Filed: 05/23/19 06:26> May 23, 2019 Assessment & Plan <Casey Santos MD - Last Filed: 05/23/19 06:26> Day #:: 1 ([38 y/o s/p vaginal delivery @ 37+5 complicated by GDM,AMA, and Hypothyroid] -BG 120 -GBS +, Blood Type O- - Feels well today. Eating well, voiding well, ambulating well. - Pain well controlled. - Routine post care - After discharge will have [address] Giles.) Subjective <Casey Santos MD - Last Filed: 05/23/19 06:26> Ambulation: ambulating normally Voiding: no voiding problems Passing Gas:: Yes Diet Tolerance:: regular diet Lochia:: Moderate (about as much as a heavy period) Feeding Type:: breast feeding (states, "going better than last child") Current Pain Level(1-10): 2 (crampy) Physical Exam <Casey Santos MD - Last Filed: 05/23/19 06:26> OB PE General: Alert, oriented. No acute distress. Cardiac: Regular rate and rhythm, no murmurs/rubs/gallops. Respiratory: Clear to auscultation anterior and posteriorly, no wheezes/rales/rhonchi. No increased work of breathing. Symmetrical chest rise. No respiratory distress. Abdomen: Soft, nontender, nondistended. Bowel sounds present. Uterus: Uterine fundus firm, palpable 1 cm below umbilicus. Lower Extremities: No lower extremity edema or swelling. No deep calf pain. Comfort's negative bilaterally. OB ROS Denies fever, chills, sweats Denies shortness of breath, difficulty breathing, chest pain, palpitations, chest pressure. Denies breast pain. Denies dysuria. Denies headache. Results & Data <Casey Santos MD - Last Filed: 05/23/19 06:26> Vital Signs (Past 12 Hours) Vital Signs Temp Pulse Pulse Resp BP BP Pulse Ox 05/23/19 04:30 36.5 C 86 16 110/59 L 98 05/22/19 23:15 36.5 C 75 16 123/70 98 05/22/19 19:40 36.6 C 96 H 16 104/65 97 05/22/19 19:11 98 H 120/59 L 05/22/19 18:56 104 H 117/63 05/22/19 18:41 101 H 108/57 L 05/22/19 18:26 102 H 114/60 05/22/19 18:11 103 H 133/60 05/22/19 17:56 102 H 141/71 H 05/22/19 17:41 99 H 112/57 L 05/22/19 17:40 16 05/22/19 17:26 86 126/62 05/22/19 17:11 91 H 120/67 05/22/19 17:10 18 05/22/19 17:06 91 H 137/64 <Iwona Giles MD - Last Filed: 05/23/19 06:28> Co-Signing Physician Notes I have reviewed the resident's note and examined the patient myself, and agree with the note above.
[2019-05-23 06:25] LABS: Hematocrit (blood only) 32.4 % (37-47); Mean Corpuscular Volume 90.8 fL (80-100); Mean Platelet Volume 10.7 fL (7.4-10.4); Platelet Count 144 K/uL (130-400); RDW Coefficient of Variation 14.8 % (11.5-14.5); RDW Standard Deviation 48.6 fL (36.4-46.3); Red Blood Count 3.57 M/uL (4.2-5.4); White Blood Count 11.28 K/uL (4.8-10.8)
[2019-05-23] MEDS: PRENATAL VITAMIN 1 TAB PO SCH (08:00)
[2019-05-23] MEDS: DOCUSATE SODIUM 100 MG CAP PO SCH ×2 (08:00→21:09)
[2019-05-23] MEDS ORDERED: DIPHTHERIA/TETANUS/PERTUSSIS 0.5 ML SYR/VIAL IM ONE (09:00)
[2019-05-24] MEDS: LEVOTHYROXINE SODIUM 100 MCG TABLET PO SCH (04:28)
--- NOTE | 2019-05-24 05:37 | Obstetrical Progress Note ---
Date of Service <Casey Santos MD - Last Filed: 05/24/19 06:53> May 24, 2019 Assessment & Plan <Casey Santos MD - Last Filed: 05/24/19 06:53> (1) Vaginal delivery: [38 y// s/p vaginal delivery @ 37+5 complicated by A2GDM, AMA, GBS+] - GBS pos., Blood Type O- (baby RH-) - Feels well today. Eating well, voiding well, ambulating well. - Pain well controlled. - After discharge will have [address] Giles. A2 GDM - blood sugar has normalized after - d/c insulin use - followup oral glucose tolerance testing Day #:: 2 Subjective <Casey Santos MD - Last Filed: 05/24/19 06:53> Ambulation: ambulating normally Voiding: no voiding problems Passing Gas:: Yes Diet Tolerance:: regular diet Lochia:: Small Feeding Type:: breast feeding Current Pain Level(1-10): 1 Physical Exam <Casey Santos MD - Last Filed: 05/24/19 06:53> OB PE General: Alert, oriented. No acute distress. Cardiac: Regular rate and rhythm, no murmurs/rubs/gallops. Respiratory: Clear to auscultation anterior and posteriorly, no wheezes/rales/rhonchi. No increased work of breathing. Symmetrical chest rise. No respiratory distress. Abdomen: Soft, nontender, nondistended. Bowel sounds present. Uterus: Uterine fundus firm, palpable 1 cm below umbilicus. Lower Extremities: No lower extremity edema or swelling. No deep calf pain. Comfort's negative bilaterally. OB ROS Denies fever, chills, sweats Denies shortness of breath, difficulty breathing, chest pain, palpitations, chest pressure. Denies breast pain. Denies dysuria. Denies headache. Results & Data <Casey Santos MD - Last Filed: 05/24/19 06:53> Vital Signs (Past 12 Hours) Vital Signs Temp Pulse Resp BP 05/23/19 23:25 36.7 C 87 18 110/63 05/23/19 19:20 36.8 C 84 18 107/60 <Raul Garsia Jr, MD, FACOG - Last Filed: 05/24/19 07:28> Co-Signing Physician Notes Resident Physician Supervision Note: I was present with Dr. Santos during the history and exam. I discussed the case with the resident and agree with the findings and plan as documented in the note. Any exceptions or clarifications are listed here: D/C intructions reviewed, will d/c insulin, f/u 6 week check Documented By: Raul Garsia Jr, MD, FACOG
[2019-05-24 07:02] LABS: Hematocrit (blood only) 32.9 % (37-47); Hemoglobin 10.9 g/dL (12.0-16.0)
[2019-05-24] MEDS: PRENATAL VITAMIN 1 TAB PO SCH (08:30)
[2019-05-24] MEDS: DOCUSATE SODIUM 100 MG CAP PO SCH (08:30)
== END 2019-05-24 10:45 | disposition home or self-care (01) | DRG 807 ==
LOC: OPB 06:00 → 4S1 06:04 → 4S2 19:30